=== PATIENT | female | born 1990 | race African-American/Black ===

== ENCOUNTER 2019-10-12 13:23 | Emergency (ER) | payer OTHER ==
[2019-10-12 13:29] VITALS: BP 132/73
[2019-10-12] MEDS ORDERED: IBUPROFEN 800 MG TABLET PO ONE (13:42)
[2019-10-12] MEDS ORDERED: CYCLOBENZAPRINE HCL 10 MG TABLET PO ONE (13:42)
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
== END 2019-10-12 15:13 | disposition home or self-care (01) ==
LOC: ER 13:23
DX: S16.1XXA Strain of muscle, fascia and tendon at neck level, initial encounter (principal); S29.012A Strain of muscle and tendon of back wall of thorax, initial encounter; S43.401A Unspecified sprain of right shoulder joint, initial encounter; M54.6 Pain in thoracic spine; V89.2XXA Person injured in unspecified motor-vehicle accident, traffic, initial encounter
CPT/HCPCS: 72070; 72125; 99284

== ENCOUNTER 2020-01-09 16:58 | Emergency (ER) | payer OTHER ==
[2020-01-09] MEDS ORDERED: IBUPROFEN 600 MG TABLET PO ONE (17:59)
[2020-01-09] MEDS ORDERED: ONDANSETRON 4 MG TAB.RAPDIS PO ONE (17:59)
[2020-01-09] MEDS ORDERED: NORMAL SALINE 1000 ML 1,000 ML IV ONE (17:59)
--- NOTE | 2020-01-09 18:01 | ER Document Report ---
ED Medical Screen (RME) - General Chief Complaint: Flu Symptoms Stated Complaint: VOMITING/DIAHERRA/WEAKNESS/COUGHING Time Seen by Provider: 01/09/20 17:54 TRAVEL OUTSIDE OF THE [place] IN LAST 30 DAYS: No - HPI Notes: 01/09/20 17:59 29-year-old female to the emergency department with complaints of cough, chest pain, upper abdominal pain, nausea and vomiting that all began on Friday. She states that she is also had shaking chills and she thinks a fever at home. 2 of her children have been sick1 with the flu and one with a viral syndrome. She denies any sore throat. She states everywhere hurts. She denies any abdominal pain. She states that she has not been able to hold anything down all day long. She has been trying to take [id number] flu medicine and Tylenol with little benefit. I performed a brief medical screening exam on the patient determined that the patient needs further evaluation and management by main side provider. I have placed initial orders to help expedite care. - Related Data Allergies/Adverse Reactions: No Known Allergies Allergy (Verified 01/09/20 17:54) Past Medical History - Social History Chew tobacco use (# tins/day): No Frequency of alcohol use: None Drug Abuse: None - Past Medical History Cardiac Medical History: Pulmonary Medical History: Neurological Medical History: Denies: Hx Seizures GI Medical History: Musculoskeltal Medical History: Infectious Medical History: Past Surgical History: Reports: Hx Section. Denies: Hx Hysterectomy, Hx Pacemaker Physical Exam - Vital signs Vitals: Temp Pulse Resp BP Pulse Ox 98.4 F 85 18 133/76 H 99 01/09/20 17:11 01/09/20 17:11 01/09/20 17:11 01/09/20 17:11 01/09/20 17:11 Course - Vital Signs Vital signs: Temp Pulse Resp BP Pulse Ox 98.4 F 85 18 133/76 H 99 01/09/20 17:11 01/09/20 17:11 01/09/20 17:11 01/09/20 17:11 01/09/20 17:11
[2020-01-09 19:08] LABS: ABSOLUTE LYMPHOCYTES (AUTO) 1.5 10^3/uL (0.5-4.7); ABSOLUTE MONOCYTES (AUTO) 0.3 10^3/uL (0.1-1.4); BASOPHILS % (AUTO) 0.2 % (0-2); HEMATOCRIT 35.6 % (36.0-47.0); HEMOGLOBIN 12.4 g/dL (12.0-15.5); LYMPHOCYTES % (AUTO) 38.9 % (13-45); MEAN CORPUSCULAR HEMOGLOBIN 27.7 pg (27.0-33.4); MEAN CORPUSCULAR VOLUME 79 fl (80-97); MONOCYTES % (AUTO) 8.2 % (3-13); PLATELET COUNT 228 10^3/uL (150-450); RED BLOOD COUNT 4.49 10^6/uL (3.72-5.28); RED CELL DISTRIBUTION WIDTH 14.4 % (11.5-14.0); SEGMENTED NEUTROPHILS % (AUTO) 52.7 % (42-78); TOTAL CELLS COUNTED % (AUTO) 100 %; WHITE BLOOD COUNT 3.8 10^3/uL (4.0-10.5)
[2020-01-09 19:13] LABS: APPEARANCE,URINE SLIGHTLY-CLOUDY; BILIRUBIN,URINE NEGATIVE (NEGATIVE); COLOR,URINE DARK YELLOW; GLUCOSE, URINE NEGATIVE (NEGATIVE); KETONES,URINE 20 mg/dL (NEGATIVE); LEUKOCYTE ESTERASE,URINE SMALL (NEGATIVE); NITRITE,URINE NEGATIVE (NEGATIVE); PROTEIN,URINE 100 mg/dL (NEGATIVE); URINE SPECIFIC GRAVITY 1.038
[2020-01-09 19:22] LABS: A TYPE INFLUENZA AG NEGATIVE (NEGATIVE); B INFLUENZA AG NEGATIVE (NEGATIVE)
[2020-01-09 19:27] LABS: ALBUMIN 4.4 g/dL (3.5-5.0); ALKALINE PHOSPHATASE 68 U/L (38-126); ANION GAP 12 (5-19); ASPARTATE AMINO TRANSFERASE 24 U/L (14-36); BILIRUBIN,DIRECT 0.3 mg/dL (0.0-0.4); BILIRUBIN,TOTAL 0.4 mg/dL (0.2-1.3); BLOOD UREA NITROGEN 9 mg/dL (7-20); CARBON DIOXIDE 26 mmol/L (22-30); CHLORIDE 102 mmol/L (98-107); GLUCOSE 95 mg/dL (75-110); TOTAL PROTEIN 8.2 g/dL (6.3-8.2)
--- NOTE | 2020-01-09 19:41 | RADIOLOGY REPORT (SQ) ---
EXAM DESCRIPTION: CHEST 2 VIEWS COMPLETED DATE/TIME: 01/09/2020 6:56 pm REASON FOR STUDY: chest pain, back pain, fever, cough COMPARISON: None. EXAM PARAMETERS: NUMBER OF VIEWS: two views TECHNIQUE: Digital Frontal and Lateral radiographic views of the chest acquired. RADIATION DOSE: NA LIMITATIONS: none FINDINGS: LUNGS AND PLEURA: No opacities, masses or pneumothorax. No pleural effusion. MEDIASTINUM AND HILAR STRUCTURES: No masses or contour abnormalities. HEART AND VASCULAR STRUCTURES: Heart normal size. No evidence for failure. BONES: No acute findings. HARDWARE: None in the chest. OTHER: No other significant finding. IMPRESSION: NO ACUTE RADIOGRAPHIC FINDING IN THE CHEST. TECHNICAL DOCUMENTATION: JOB ID: [id number] 2010 [employer]- All Rights Reserved Reading location - IP/workstation name: [email or web address]
[2020-01-09] MEDS ORDERED: POTASSIUM CHLORIDE 10 MEQ TABLET.ER PO ONE (22:02)
[2020-01-09] MEDS ORDERED: ONDANSETRON ODT 4 MG TAB (6 TAB/ER DISP) PO PRN (22:37)
[2020-01-09] MEDS ORDERED: CYCLOBENZAPRINE HCL 10 MG TABLET PO ONE (22:37)
--- NOTE | 2020-01-09 22:43 | ER Document Report ---
ED General - General Chief Complaint: Flu Symptoms Stated Complaint: VOMITING/DIAHERRA/WEAKNESS/COUGHING Time Seen by Provider: 01/09/20 17:54 Notes: 29-year-old female presents emergency department complaining of sweats, chills, fever since Friday associated with decreased oral intake, started vomiting today, complains of a productive cough, muscle aches and chest pain while coughing as well as rhinorrhea and sore throat onset today. Denies any dysuria or frequency, denies any flank pain. Admits to the urge to help of all bowel movement but has not had any. Denies any abdominal pain. She has 1 child at home that has been diagnosed with influenza and a second child who is been diagnosed with a viral syndrome. TRAVEL OUTSIDE OF THE [place] IN LAST 30 DAYS: No - Related Data Allergies/Adverse Reactions: No Known Allergies Allergy (Verified 01/09/20 17:54) Past Medical History - General Information source: Patient - Social History Smoking Status: Never Smoker Chew tobacco use (# tins/day): No Frequency of alcohol use: None Drug Abuse: None Family History: Reviewed & Not Pertinent Patient has suicidal ideation: No Patient has homicidal ideation: No - Past Medical History Cardiac Medical History: Pulmonary Medical History: Neurological Medical History: Denies: Hx Seizures GI Medical History: Musculoskeletal Medical History: Infectious Medical History: Past Surgical History: Reports: Hx Section - X3. Denies: Hx Hysterec jay, Hx Pacemaker Review of Systems - Review of Systems Constitutional: See HPI, Chills, Diaphoresis, Fever, Malaise EENT: See HPI, Nose congestion, Nose discharge, Throat pain. denies: Eye discharge, Blurred vision Cardiovascular: See HPI, Chest pain - Only with cough and deep breath.. denies: Dyspnea, Syncope, Dizziness, Lightheaded Respiratory: See HPI, Cough, Hurts to breathe Gastrointestinal: See HPI, Nausea, Vomiting. denies: Abdomen distended, Abdominal pain Genitourinary: No symptoms reported. denies: Burning, Dysuria, Frequency Musculoskeletal: See HPI, Muscle pain -: Yes All other systems reviewed and negative Physical Exam - Vital signs Vitals: Temp Pulse Resp BP Pulse Ox 98.4 F 85 18 133/76 H 99 01/09/20 17:11 01/09/20 17:11 01/09/20 17:11 01/09/20 17:11 01/09/20 17:11 Interpretation: Normal - Notes Notes: GENERAL: Alert, interacts well. Appears mildly uncomfortable. HEAD: Normocephalic, atraumatic EYES: Pupils equal, round and reactive to light, extraocular movements intact. ENT: Oral mucosa moist, tongue midline. NECK: Full range of motion, supple, trachea midline. LUNGS: Clear to auscultation bilaterally, no wheezes, rales or rhonchi, no respiratory distress. HEART: Regular rate and rhythm, no murmurs, gallops, rubs. ABDOMEN: Soft, nontender, nondistended, bowel sounds present in all 4 quadrants. EXTREMITIES: Moves all 4 extremities spontaneously, no edema, radial and dorsalis pedis pulses 2/4 bilaterally. No cyanosis. NEUROLOGICAL: Alert and oriented x3, normal speech. PSYCH: Normal mood, normal affect. SKIN: Warm, diaphoretic, normal turgor. Course - Re-evaluation Re-evalutation: 01/09/20 22:40 CBC shows slightly low white blood cell count at 3.8, platelets normal, CMP shows low potassium at 3.0, this is repleted by mouth, otherwise unremarkable, test negative, urinalysis does show small blood, 20 of ketones, small leukocyte esterase, it does have 2 squamous epithelial cells, patient states she is at the end of her menstrual cycle. She has no urinary tract infection symptoms, currently we will send this for culture and hold off on treating it until culture has grown out. Flu a and B are negative. Chest x-ray shows no acute process. Discussed with patient that we can certainly still do symptomatic treatment. Patient is encouraged to use ibuprofen and acetaminophen for pain and fever, we will also use Zofran and Phenergan for nausea and vomiting, patient is instructed to use Flexeril as needed for muscle pain and muscle spasm, nasal saline rinses and nasal steroids to help with the rhinorrhea. Tessalon Perles for cough. Discharged home. - Vital Signs Vital signs: Temp Pulse Resp BP Pulse Ox 98.4 F 85 18 133/76 H 99 01/09/20 17:11 01/09/20 17:11 01/09/20 17:11 01/09/20 17:11 01/09/20 17:11 - Laboratory Result Diagrams: 01/09/20 18:40 01/09/20 18:40 Laboratory results interpreted by me: 01/09/20 01/09/20 01/09/20 18:25 18:40 18:40 WBC 3.8 L Hct 35.6 L MCV 79 L RDW 14.4 H Potassium 3.0 L* Urine Protein 100 H Urine Ketones 20 H Urine Blood SMALL H Urine Urobilinogen 4.0 H Ur Leukocyte Esterase SMALL H Discharge - Discharge Clinical Impression: Myalgia, Viral upper respiratory tract infection with cough Nausea and vomiting Qualifiers: Vomiting type: unspecified Vomiting Intractability: non-intractable Qualified Code(s): R11.2 - Nausea with vomiting, unspecified Condition: Stable Disposition: HOME, SELF-CARE Additional Instructions: Please use nasal saline rinses such as a NetiPot or NeilMed Sinus Rinses. You may use Benadryl at night and Sudafed during the day both as directed on the box [id number]. Please use Nasonex or other nasal steroid 1 squirt per nostril twice a day. Many of these are available [id number] but I have written you a prescription for Nasonex specifically. Please use ibuprofen (Motrin or Advil) 600-800 mg every 8 hours as needed for pain or fever. You may also use acetaminophen (Tylenol) 1000 mg every 4-6 hours as needed for pain or fever. Please be aware that many medications contain acetaminophen, do not exceed a total of 1000 mg of acetaminophen every 6 hours. The Tessalon Perles can help to decrease your cough. I have prescribed Zofran and Phenergan for your nausea and vomiting. The Zofran will dissolve under your tongue and stop the vomiting, you may use the Phenergan to decrease your nausea as well if the Zofran does not completely relieve your nausea. You may also use Imodium as directed [id number] to help with your diarrhea. I have prescribed Flexeril, this is a muscle relaxer, you may take 1 every 8 hours as needed to help with muscle pain that is not relieved by ibuprofen or acetaminophen. I suspect you have a virus which is causing these symptoms. If your symptoms get worse, if you develop new symptoms, if your symptoms simply do not start to improve within 2 days or you develop any new or concerning symptoms please return to the emergency department for a recheck. Prescriptions: Promethazine HCl [Phenergan 25 mg Tablet] 25 mg PO Q4HP PRN #14 tablet PRN Reason: Ondansetron [Zofran Odt 4 mg Tablet] 4 mg PO Q4HP PRN #14 tab.rapdis PRN Reason: Benzonatate [Tessalon Perles 100 mg Capsule] 100 mg PO Q8HP PRN #40 capsule PRN Reason: Cyclobenzaprine HCl [Flexeril 10 mg Tablet] 10 mg PO TIDP PRN #15 tab PRN Reason: Forms: Return to Work
[2020-01-09 23:30] VITALS: BP 109/61
== END 2020-01-09 23:30 | disposition home or self-care (01) ==
LOC: ER 16:58
DX: J06.9 Acute upper respiratory infection, unspecified (principal); R11.2 Nausea with vomiting, unspecified; M79.10 Myalgia, unspecified site; R50.9 Fever, unspecified; R63.0 Anorexia; R05 Cough; R07.9 Chest pain, unspecified; J34.89 Other specified disorders of nose and nasal sinuses
CPT/HCPCS: 99283; 96360; 36415; 87086; 84703; 85025; 80053; 81001; 87804; 71046; S0119; J7030

== ENCOUNTER 2020-08-17 18:38 | Emergency (ER) | payer MEDICAID ==
[2020-08-17] MEDS ORDERED: HYDROCODONE/ACETAMINOPHEN 5-325 MG TABLET PO ONE (18:56)
--- NOTE | 2020-08-17 19:00 | ER Document Report ---
HPI - HPI Patient complains to provider of: Right knee injury Time Seen by Provider: 08/17/20 18:52 Onset: Other - 2 days ago Onset/Duration: Persistent Quality of pain: Achy Context: Patient states she slipped on a wet floor 2 days ago landing on her right knee. Patient states the knee has felt like it is going to give out on her several times since then. Patient denies any other injury. Associated Symptoms: Other - Right knee injury Exacerbated by: Standing, Movement, Walking Relieved by: Denies Similar symptoms previously: No Recently seen / treated by doctor: No - ROS ROS below otherwise negative: Yes Systems Reviewed and Negative: Yes All other systems reviewed and negative - NEURO Neurology: DENIES: Weakness - GASTROINTESTINAL Gastrointestinal: DENIES: Nausea - REPRODUCTIVE Reproductive: DENIES: : - MUSCULOSKELETAL Musculoskeletal: REPORTS: Extremity pain, Swelling - DERM Skin Color: Normal Skin Problems: None Past Medical History - General Information source: Patient - Social History Smoking Status: Never Smoker Frequency of alcohol use: None Drug Abuse: None Occupation: Foodservice Family History: Reviewed & Not Pertinent - Medical History Medical History: Negative - Past Medical History Cardiac Medical History: Pulmonary Medical History: Neurological Medical History: Denies: Hx Seizures GI Medical History: Musculoskeletal Medical History: Infectious Medical History: Past Surgical History: Reports: Hx Section - X3 Vertical Provider Document - CONSTITUTIONAL Agree With Documented VS: Yes Exam Limitations: No Limitations General Appearance: WD/WN, No Apparent Distress - INFECTION CONTROL TRAVEL OUTSIDE OF THE [place] IN LAST 30 DAYS: No - HEENT HEENT: Atraumatic, Normocephalic - NECK Neck: Normal Inspection - RESPIRATORY Respiratory: No Respiratory Distress - CARDIOVASCULAR Pulses: Normal: Dorsalis pedis - MUSCULOSKELETAL/EXTREMETIES Musculoskeletal/Extremeties: MAEW, Tender - Right knee joint tenderness to the lateral and medial compartment, mild joint effusion, no calor, no laxity with varus or valgus maneuvers, Edema. negative: Eccymosis - NEURO Level of Consciousness: Awake, Alert, Appropriate Motor/Sensory: No Motor Deficit - DERM Integumentary: Warm, Dry, No Rash Course - Re-evaluation Re-evalutation: 08/17/20 19:49 Patient with small joint effusion, no underlying fracture. Will immobilize and refer to orthopedics for any persistent pain or problem. Patient verbalized understanding and is agreement with discharge plan of care. - Vital Signs Vital signs: Temp Pulse Resp BP Pulse Ox 98.0 F 84 18 128/75 H 98 08/17/20 18:43 08/17/20 18:43 08/17/20 18:43 08/17/20 18:43 08/17/20 18:43 - Diagnostic Test Radiology reviewed: Image reviewed, Reports reviewed Procedures - Immobilization Right Knee Pre-Proc Neuro Vasc Exam: Normal Immobilizer type: Knee immobilizer Performed by: PCT Post-Proc Neuro Vasc Exam: Normal Alignment checked and good: Yes Discharge - Discharge Clinical Impression: Knee effusion, right Right knee sprain Qualifiers: Encounter type: initial encounter Involved ligament of knee: unspecified ligament Qualified Code(s): S83.91XA - Sprain of unspecified site of right knee, initial encounter Condition: Stable Disposition: HOME, SELF-CARE Instructions: Use of Crutches ([facility]), Ice & Elevation ([facility]), Suspected Internal Knee Injury ([facility]), Knee Immobilizing Splint ([facility]), Sprained Knee ([facility]) Additional Instructions: Return immediately for any new or worsening symptoms Followup with your primary care provider, call tomorrow to make a followup appointment Weightbearing as tolerated Follow-up with orthopedics for any persistent pain or problems Prescriptions: Naproxen [Naprosyn 250 Nmg Tablet] 1 tab PO BID #14 tablet Forms: Return to Work Referrals: [facility] [Provider Group] - Follow up as needed
--- NOTE | 2020-08-17 19:33 | RADIOLOGY REPORT (SQ) ---
EXAM DESCRIPTION: KNEE RIGHT 4 VIEWS IMAGES COMPLETED DATE/TIME: 08/17/2020 7:16 pm REASON FOR STUDY: fall, r knee pain COMPARISON: None. EXAM PARAMETERS: NUMBER OF VIEWS: Four views. TECHNIQUE: AP, lateral and oblique radiographic images acquired of the right knee. LIMITATIONS: None. FINDINGS: MINERALIZATION: Normal. BONES: No acute fracture or dislocation. No worrisome bone lesions. JOINTS: Small effusion. SOFT TISSUES: No significant soft tissue swelling. No radiopaque foreign body. OTHER: No other significant finding. IMPRESSION: NO FRACTURE.Small effusion. TECHNICAL DOCUMENTATION: JOB ID: [id number] [place]-72 2010 [employer]- All Rights Reserved Reading location - IP/workstation name: [employer]
[2020-08-17 19:59] VITALS: BP 132/72
== END 2020-08-17 19:59 | disposition home or self-care (01) ==
LOC: ER 18:38
DX: S83.91XA Sprain of unspecified site of right knee, initial encounter (principal); M25.461 Effusion, right knee; W01.0XXA Fall on same level from slipping, tripping and stumbling without subsequent striking against object, initial encounter; Y93.E5 Activity, floor mopping and cleaning
CPT/HCPCS: 99283

== ENCOUNTER 2020-08-22 05:25 | Emergency (ER) | payer MEDICAID ==
[2020-08-22] MEDS ORDERED: ONDANSETRON 4 MG TAB.RAPDIS PO ONE (05:52)
[2020-08-22] MEDS ORDERED: NORMAL SALINE 1000 ML 1,000 ML IV ONE (08:30)
--- NOTE | 2020-08-22 08:37 | ER Document Report ---
ED GI/ - General Chief Complaint: Nausea/Vomiting Stated Complaint: VOMITING Time Seen by Provider: 08/22/20 08:15 Primary Care Provider: MILTON DINERO MD [Primary Care Provider] - Follow up as needed Notes: CHIEF COMPLAINT: Vomiting since last night HPI: 30-year-old female presenting for vomiting since last night believes she has thrown up at least 10 times. Reports generalized abdominal soreness from vomiting. No dysuria no fever no recent illness. Patient does have children at home but none of them are sick. She is not concerned about COVID. ROS: See HPI - all other systems were reviewed and are otherwise negative Constitutional: no fever Eyes: no drainage, no blurred vision ENT: no runny nose, no sore throat Cardiovascular: no chest pain Resp: no SOB, no cough GI: + vomiting, no diarrhea, positive generalized abdominal pain : no dysuria Integumentary: no rash Allergy: no hives Musculoskeletal: no extremity pain or swelling Neurological: no numbness/tingling, no weakness MEDICATIONS: I agree with the patient medications as charted by the RN. ALLERGIES: I agree with the allergies as charted by the RN. PAST MEDICAL HISTORY/PAST SURGICAL HISTORY: Reviewed and agree as charted by RN. SOCIAL HISTORY: Reviewed and agree as charted by RN. FAMILY HISTORY: No significant familial comorbid conditions directly related to patient complaint EXAM: Reviewed vital signs as charted by RN. CONSTITUTIONAL: Alert and oriented and responds appropriately to questions. Well-appearing; well-nourished HEAD: Normocephalic; atraumatic EYES: PERRL; Conjunctivae clear, sclerae non-icteric ENT: normal nose; no rhinorrhea; moist mucous membranes; pharynx without lesions noted, no uvula edema or deviation, no tonsillar hypertrophy, phonation normal NECK: Supple without meningismus; non-tender; no cervical lymphadenopathy, no masses CARD: RRR; no murmurs, no clicks, no rubs, no gallops; symmetric distal pulses RESP: Normal chest excursion without splinting or tachypnea; breath sounds clear and equal bilaterally; no wheezes, no rhonchi, no rales, pulse oximetry 98% on room air not hypoxic ABD/GI: Normal bowel sounds; non-distended; soft, mild lateral tenderness bilaterally on palpation with no focal tenderness of the right upper or right lower quadrants, no rebound, no guarding; no palpable organomegaly or masses. BACK: The back appears normal and is non-tender to palpation, there is no CVA tenderness EXT: Normal ROM in all joints; non-tender to palpation; no cyanosis, no effusion s, no edema SKIN: Normal color for age and race; warm; dry; good turgor; no acute lesions noted NEURO: Moves all extremities equally; Motor and sensory function intact PSYCH: The patient's mood and manner are appropriate. Grooming and personal hygiene are appropriate. MDM: 30-year-old female presenting with multiple episodes of vomiting last night. Has no focal abdominal pain at this time. Was given oral Zofran in triage. Appears mildly dehydrated will give IV fluids, check baseline screening labs, p.o. challenge reassess. Patient declines COVID testing at this time TRAVEL OUTSIDE OF THE [place] IN LAST 30 DAYS: No - Related Data Allergies/Adverse Reactions: No Known Allergies Allergy (Verified 01/09/20 17:54) Past Medical History - Social History Smoking Status: Never Smoker Family History: Reviewed & Not Pertinent - Past Medical History Cardiac Medical History: Pulmonary Medical History: Neurological Medical History: Denies: Hx Seizures GI Medical History: Musculoskeletal Medical History: Infectious Medical History: Past Surgical History: Reports: Hx Section - X3 Physical Exam - Vital signs Vitals: Temp Pulse Resp BP Pulse Ox 97.2 F 97 16 133/73 H 100 08/22/20 05:32 08/22/20 05:32 08/22/20 05:32 08/22/20 05:32 08/22/20 05:32 Course - Re-evaluation Re-evalutation: 08/22/20 10:23 Patient feels much better. No further abdominal pain or nausea tolerating oral fluids labs do not show definitive abnormalities. Patient continuing to decline COVID testing. Will discharge home with symptomatic treatment - Vital Signs Vital signs: Temp Pulse Resp BP Pulse Ox 97.2 F 97 16 133/73 H 100 08/22/20 05:32 08/22/20 05:32 08/22/20 05:32 08/22/20 05:32 08/22/20 05:32 - Laboratory Result Diagrams: 08/22/20 09:32 08/22/20 09:32 Laboratory results interpreted by me: 08/22/20 08/22/20 09:32 09:32 Hgb 11.2 L Hct 32.2 L MCV 79 L RDW 16.0 H Urine Protein 30 H Urine Ketones 80 H Urine Urobilinogen 2.0 H Discharge - Discharge Clinical Impression: Vomiting Qualifiers: Vomiting type: unspecified Vomiting Intractability: non-intractable Nausea presence: with nausea Qualified Code(s): R11.2 - Nausea with vomiting, unspecified Condition: Stable Disposition: HOME, SELF-CARE Additional Instructions: Take Zofran for any recurrent nausea vomiting. Hydrate well at home. You have declined COVID testing today. If you have worsening symptoms, focal abdominal pain high fevers or inability to tolerate oral fluids return for reevaluation Prescriptions: Ondansetron [Zofran Odt 4 mg Tablet] 1 - 2 tab PO Q4H PRN #15 tab.rapdis PRN Reason: For Nausea/Vomiting Referrals: MILTON DINERO MD [Primary Care Provider] - Follow up as needed
[2020-08-22 09:55] LABS: ABSOLUTE LYMPHOCYTES (AUTO) 1.4 10^3/uL (0.5-4.7); ABSOLUTE MONOCYTES (AUTO) 0.3 10^3/uL (0.1-1.4); ABSOLUTE NEUT (AUTO) 5.5 10^3/uL (1.7-8.2); BASOPHILS % (AUTO) 0.5 % (0-2); HEMATOCRIT 32.2 % (36.0-47.0); HEMOGLOBIN 11.2 g/dL (12.0-15.5); LYMPHOCYTES % (AUTO) 18.9 % (13-45); MEAN CORPUSCULAR HEMOGLOBIN 27.3 pg (27.0-33.4); MEAN CORPUSCULAR HGB CONC 34.6 g/dL (32.0-36.0); MEAN CORPUSCULAR VOLUME 79 fl (80-97); MONOCYTES % (AUTO) 3.9 % (3-13); PLATELET COUNT 312 10^3/uL (150-450); RED BLOOD COUNT 4.09 10^6/uL (3.72-5.28); SEGMENTED NEUTROPHILS % (AUTO) 76.7 % (42-78); TOTAL CELLS COUNTED % (AUTO) 100 %; WHITE BLOOD COUNT 7.2 10^3/uL (4.0-10.5)
[2020-08-22 10:03] LABS: APPEARANCE,URINE SLIGHTLY-CLOUDY; BILIRUBIN,URINE NEGATIVE (NEGATIVE); COLOR,URINE YELLOW; GLUCOSE, URINE NEGATIVE (NEGATIVE); KETONES,URINE 80 mg/dL (NEGATIVE); LEUKOCYTE ESTERASE,URINE NEGATIVE (NEGATIVE); NITRITE,URINE NEGATIVE (NEGATIVE); PROTEIN,URINE 30 mg/dL (NEGATIVE); URINE SPECIFIC GRAVITY 1.028
[2020-08-22 10:17] LABS: ALBUMIN 4.2 g/dL (3.5-5.0); ALKALINE PHOSPHATASE 68 U/L (38-126); ANION GAP 9 (5-19); ASPARTATE AMINO TRANSFERASE 23 U/L (14-36); BILIRUBIN,DIRECT 0.2 mg/dL (0.0-0.4); BILIRUBIN,TOTAL 0.7 mg/dL (0.2-1.3); BLOOD UREA NITROGEN 13 mg/dL (7-20); CALCIUM 9.4 mg/dL (8.4-10.2); CARBON DIOXIDE 26 mmol/L (22-30); CHLORIDE 106 mmol/L (98-107); GLUCOSE 90 mg/dL (75-110); POTASSIUM 4.1 mmol/L (3.6-5.0); TOTAL PROTEIN 7.3 g/dL (6.3-8.2)
[2020-08-22 10:40] VITALS: BP 108/68
== END 2020-08-22 10:44 | disposition home or self-care (01) ==
LOC: ER 05:25
DX: R11.2 Nausea with vomiting, unspecified (principal); R10.819 Abdominal tenderness, unspecified site
CPT/HCPCS: 99284; 96360; 36415; 83690; 84703; 85025; 80053; 81001; S0119; J7030